=== PATIENT | female | born 1950 | race Caucasian/White ===

== ENCOUNTER 2020-02-10 19:50 | Emergency (ER) | payer MEDICARE, OTHER, SELFPAY ==
--- NOTE | ~2020-02-10 | CT_ITS ---
EXAMINATION: CT abdomen pelvis w con DATE: 02/10/2020 20:47 INDICATION: Bleeding wound of the abdominal wall. TECHNIQUE: Computed tomography (CT) of the abdomen and pelvis was performed with 100 mL Omnipaque-350 intravenous contrast. Automated exposure control and iterative reconstruction technique were employe d. The dose-length product was 1118.80 mGy-cm. COMPARISON: None FINDINGS: Mild dependent atelectasis in the bilateral lower lobes. Persistent smooth septal line thickening at the bilateral lung bases consistent with minimal pulmonary edema. Cardiomegaly. Atherosclerotic coron amrita artery calcific calcification. No pericardial or pleural effusion. Postoperative changes consiste nt with bilateral breast reconstructions. Focal hepatic steatosis at the ligamentum teres. Gallbladder, spleen pancreas, bilateral adrenal glan ds and kidneys are normal. Normal appendix. No abnormal bowel wall thickening or obstruction. Bladder is normal. The uterus is not identified and has likely been surgically resected. No free intraperito kulwant gas or fluid. No pathologically enlarged abdominal or pelvic lymphadenopathy. There is calcified atherosclerosis of the aorta and many of the other arteries. Mild thoracic and lumbar spondylosis wi th 3 mm anterolisthesis L4 on L5. Small fat-containing umbilical hernia. Multiple surgical clips along the margins of an infraumbilical ventral diastases suggesting prior ventral hernia repair. There is some stranding in the anterior lo wer abdominal wall along an infraumbilical surgical wound with couple tiny foci of gas in the soft ti ssues near the skin surface along the surgical wound, slightly to the right of midline. No loculated fluid collections to suggest abscess or hematoma. No stranding in the fat deep to the abdominal wall. IMPRESSION: 1. There is some stranding and a couple tiny foci of gas along an infraumbilical surgical wound consi stent with given history of a bleeding open wound. No evident abscess or hematoma. 2. No acute intra-abdominal/pelvic process. 3. Cardiomegaly with likely minimal bibasilar pulmonary edema. Reviewed, dictated and finalized at [facility]. UP IMPRESSION: 1. There is some stranding and a couple tiny foci of gas along an infraumbilica l surgical wound consistent with given history of a bleeding open wound. No abril dent abscess or hematoma. 2. No acute intra-abdominal/pelvic process. 3. Cardiomegaly with likely minimal bibasilar pulmonary edema.
[2020-02-10 19:50] VITALS: BP 161/74; PULSE 66; RESP 18; TEMP 37.3; O2SAT 100
--- NOTE | 2020-02-10 20:01 | ECG_ITS ---
Measurements Intervals Gable Rate: 66 P: 56 TN: 204 QRS: 3 QRSD: 98 T: 21 QT: 430 QTc: 454 Interpretive Statements SINUS RHYTHM DELAYED PRECORDIAL R/S TRANSITION BASELINE ARTIFACT- II, III, AVF BORDERLINE ECG Electronically Signed On 02-11-2020 7:23:43 [employer] by Goran Erazo D.O.
[2020-02-10 20:08] LABS: Basophils Absolute Auto 0.1 K/mm3 (0.0-0.1); Basophils Percent Auto 0.8 % (0.2-1.2); Eosinophils Absolute Auto 0.1 K/mm3 (0-0.3); Hematocrit 37.3 % (37.0-47.0); Hemoglobin 12.6 g/dL (12.0-15.0); Immature Granulocyte Absolute 0.01 K/mm3 (0.00-0.031); Immature Granulocyte Percent A 0.2 % (0-0.5); Lymphocytes Percent Auto 21.4 % (18.3-44.2); Mean Corpuscular HGB Conc 33.8 g/dl (32-36); Mean Corpuscular Hemoglobin 29.5 pg (26-34); Mean Corpuscular Volume 87.4 fl (80-100); Mean Platelet Volume 9.7 fl (7.4-10.4); Monocytes Absolute Auto 0.5 K/mm3 (0.1-0.6); Monocytes Percent Auto 7.8 % (2.6-8.5); Neutrophils Absolute Auto 4.4 K/mm3 (1.3-6.7); Neutrophils Percent Auto 67.8 % (45.5-73.1); Platelet Count Result 228 k/mm3 (150-375); Red Blood Count 4.27 M/mm3 (4.2-5.4); Red Cell Distribution Width 12.9 % (11.5-14.5); White Blood Count 6.5 K/mm3 (4.5-10.0)
[2020-02-10 20:20] LABS: Alanine Aminotransferase 31 U/L (4-35); Albumin Level 4.2 g/dL (3.5-5.1); Alkaline Phosphatase 111 U/L (38-126); Anion Gap 9 mmol/L (8-16); Aspartate Amino Transferase 39 U/L (14-36); Bilirubin,Total 0.4 mg/dL (0.2-1.3); Blood Urea Nitrogen 26 mg/dL (7-17); Calcium 9.6 mg/dL (8.4-10.2); Carbon Dioxide 26 mmol/L (22-30); Chloride 101 mmol/L (98-107); Estimated CRCL calculation 59 ml/min; Estimated Glomerular Filt Rate > 60; Glucose 118 mg/dL (65-105); Sodium 136 mmol/L (137-145)
--- NOTE | 2020-02-10 20:39 | ED.GENADULT ---
HPI - General Adult General Chief complaint: Abdominal Pain Stated complaint: bleeding from abd surgery site (november) Time Seen by Provider: 02/10/20 19:50 Source: patient History of Present Illness HPI narrative: Patient is 69 y/o female complaining of bleeding from abdominal incision site. She states that this started approximately 2 hours ago. She noticed bright red blood. She denies any pain. She states that she had VICKI flap breast reconstructive surgery at [facility] recently by Dr. Westfall. Review of Systems Constitutional: Constitutional: Denies chills, Denies fever(s), Denies headache(s) and Denies weakness Eyes: Eyes: Denies blurry vision ENT: Denies headache(s) and Denies neck pain Cardiovascular: Cardiovascular: Denies chest pain and Denies dyspnea Respiratory: Respiratory: Denies cough and Denies dyspnea Gastrointestinal: Gastrointestinal: Denies abdominal pain, Denies diarrhea, Denies nausea and Denies vomiting Genitourinary: Genitourinary: Denies hematuria and Denies dysuria Musculoskeletal: Musculoskeletal: Denies back pain and Denies neck pain Integumentary/Breasts: Skin/Breast: Reports wounds (lower abdominal wound with bleeding) Neurologic: Denies headache(s) and Denies weakness Exam Const: General: no acute distress and well developed Orientation/consciousness: oriented to person, oriented to place, oriented to time and patient oriented x3 HENMT: Head: normocephalic Ears: external ears normal General nose exam: Normal external nose present Eyes: General: appearance normal, both eyes and all related structures Conjunctivae: conjunctivae normal Neck: Neck: normal visual inspection and full ROM Chest: Chest palpation & inspection: normal inspection of the chest and no tenderness Resp: Effort & Inspection: normal respiratory effort Auscultation: clear to auscultation bilaterally Cardio: Rate: regular rate Rhythm: regular rhythm GI: GI Palp: No abdominal tenderness and Yes Soft to palpation Skin: General skin exam: normal color and turgor normal Wounds: wounds noted (open wound lower abdomen with minimal bleeding) Neuro: General: oriented to person, oriented to place, oriented to time and patient oriented x3 Cognition (Neuro): normal cognition Extrem: General: normal to inspection, full ROM and no pedal edema Psych: Appearance: grossly normal Mental Status: mental status grossly normal Affect: normal affect Course Consultations Consultation #1: Discussed with Dr. Westfall (plastic surgery), who recommends antibiotic ointment, non stick dressing like Telfa and patient can follow up with him. Date: 02/10/20 Time: 21:42 Vital Signs Vital signs: Vital Signs Temperature 37.3 C 02/10/20 19:50 Pulse Rate 66 02/10/20 19:50 Respiratory Rate 18 02/10/20 19:50 Blood Pressure 161/74 H 02/10/20 19:50 Pulse Oximetry 100 02/10/20 19:50 Temperature 37.3 C 02/10/20 19:50 Pulse Rate 66 02/10/20 19:50 Respiratory Rate 18 02/10/20 19:50 Blood Pressure 161/74 H 02/10/20 19:50 Pulse Oximetry 100 02/10/20 19:50 Medical Decision Making Vital Signs Vital Signs: Vital Signs Temperature 37.3 C 02/10/20 19:50 Pulse Rate 66 02/10/20 19:50 Respiratory Rate 18 02/10/20 19:50 Blood Pressure 161/74 H 02/10/20 19:50 Pulse Oximetry 100 02/10/20 19:50 Temperature 37.3 C 02/10/20 19:50 Pulse Rate 66 02/10/20 19:50 Respiratory Rate 18 02/10/20 19:50 Blood Pressure 161/74 H 02/10/20 19:50 Pulse Oximetry 100 02/10/20 19:50 Lab Data Result diagrams: 02/10/20 20:03 02/10/20 20:03 Labs: Lab Results 02/10/20 02/10/20 02/10/20 Range/Units 20:02 20:03 20:03 WBC 6.5 (4.5-10.0) K/mm3 RBC 4.27 (4.2-5.4) M/mm3 Hgb 12.6 (12.0-15.0) g/dL Hct 37.3 (37.0-47.0) % MCV 87.4 (80-100) fl MCH 29.5 (26-34) pg MCHC 33.8 (32-36) g/dl RDW 12.9 (11.5-14.5) % Plt Count 228 (150-375)
[2020-02-10 21:20] LABS: Partial Thromboplastin Time 28.6 SECONDS (22.3-36.8); Prothrombin Time 14.1 Seconds (11.1-14.7)
== END 2020-02-10 23:10 | disposition home or self-care (01) ==
PROVIDERS: Emergency Provider Emergency Medicine
DX: T81.31XA Disruption of external operation (surgical) wound, not elsewhere classified, initial encounter (principal)
CPT/HCPCS: 36415; 74177; 80053; 85025; 85610; 85730; 93005; 99284; Q9967